=== PATIENT | female | born 1975 | race Caucasian/White ===

== ENCOUNTER 2022-10-10 13:55 | Emergency (ER) | payer OTHER, MEDICAID, SELFPAY ==
[2022-10-10] VITALS (10 sets, daily range): BP systolic 122–178; BP diastolic 57–106; PULSE 85–110; RESP 18–20; TEMP 37.2; O2SAT 94–99
--- NOTE | 2022-10-10 14:25 | DI.RAD.S_ITS ---
PROCEDURE: XR CHEST 2V INDICATIONS: productive cough TECHNIQUE: 2 views of the chest were acquired. COMPARISON: None. FINDINGS: Surgical changes and devices: None. Lungs and pleura: Mildly prominent interstitium and peribronchial cuffing. No dense consolidation or pleural effusion. Mediastinum: Mediastinal contours are normal. Heart size is normal. Bones and chest wall: No suspicious bony abnormalities. Soft tissues appear unremarkable. IMPRESSION: Peribronchial cuffing and mildly prominent perihilar regions could represent infectious bronchitis in the setting of cough. No dense pulmonary airspace consolidation or pleural effusion. Dictated by: Reg Russ M.D. on 10/10/2022 at 15:50 Approved by: Reg Russ M.D. on 10/10/2022 at 15:51
--- NOTE | 2022-10-10 15:12 | ED.URI ---
HPI - URI/Sore Throat <Anu Gomez PA-C - Last Filed: 10/10/22 19:06> General Chief Complaint: Upper Respiratory Symptoms Stated Complaint: SOB t-1/Chest Tightness/Heaviness Time Seen by Provider: 10/10/22 14:41 Mode of arrival: Ambulatory History of Present Illness HPI Narrative: Patient is 47 years old female, ex-smoker, who reports has been sick with upper respiratory symptoms for about 1 week, however her cough, congestion is now much worse to the point she is coughing non stop She admits to chest tightness, SOB, feeling hot and cold, rib cage pain, due to coughing, nasal congestion. Her cough became productive with green mucus. What worries her the most, inability to take a full breath since this AM which prompted her current ED visit. She admits her grandchild has had some respiratory sx, which resolved, however I am in a bad way. Related Data Previous Rx's Medication Instructions Recorded albuterol sulfate 90 mcg/actuation 2 puff inhalation Q6H PRN 10/10/22 aerosol inhaler (Proventil HFA) shortness of breath or wheezing #8.5 grams azithromycin 250 mg tablet See Rx Instructions PO .COMPLEX #6 10/10/22 (Zithromax) tabs codeine 10 mg-guaifenesin 100 mg/5 10 ml PO Q4-6H PRN cough #237 mL 10/10/22 mL oral liquid (Guaifenesin AC) methylprednisolone 4 mg tablets in See Rx Instructions PO .COMPLEX 10/10/22 a dose pack (Medrol (Imtiaz)) #21 ea Allergies Allergy/AdvReac Type Severity Reaction Status Date / Time No Known Drug Allergies Allergy Verified 10/10/22 14:24 Review of Systems <Anu Gomez PA-C - Last Filed: 10/10/22 19:06> Review of Systems Narrative: Pertinent review of systems is otherwise normal unless stated in HPI Patient History <Anu Gomez PA-C - Last Filed: 10/10/22 19:06> Social History Smoking Status: Former smoker Smoking Status: Former smoker Substance Use Type: does not use Exam <Anu Gomez PA-C - Last Filed: 10/10/22 19:06> Narrative Exam Narrative: GENERAL: alert and oriented X 3 female , overweight, 47 ears old patient appears older stated age. , in mild distress an coughing non stop . HEAD: Atraumatic. Normocephalic. EYES: Pupils equal round and reactive. Extraocular motions intact. No scleral icterus. No injection or drainage. ENT: clear nasal discharge , nostrils are without bleeding, purulent drainage. Throat with erythema, tonsillar hypertrophy or exudate. Airway patent. NECK: Trachea midline. Non tender CARDIOVASCULAR: Regular rate and rhythm without murmurs, gallops, or rubs. RESPIRATORY: scattered wheezing at a/l/ lobes on auscultation. Breath sounds equal bilaterally. pt coughs frequently GASTROINTESTINAL: Abdomen soft, non-tender, nondistended. EXTREMITIES: No edema or joint tenderness. BACK: Nontender without deformity or crepitance. No flank tenderness. NEURO: AOx3. SKIN: No rash or erythema of visible areas Initial Vital Signs Initial Vital Signs: Vital Signs Temperature 98.9 F 10/10/22 14:19 Pulse Rate 110 H 10/10/22 14:19 Respiratory Rate 18 10/10/22 14:19 Blood Pressure 178/106 H 10/10/22 14:19 Pulse Oximetry 96 10/10/22 14:19 Oxygen Delivery Method 10/10/22 14:19 <Leelee Hernandez MD - Last Filed: 10/15/22 05:02> Initial Vital Signs Initial Vital Signs: Vital Signs Temperature 98.9 F 10/10/22 14:19 Pulse Rate 110 H 10/10/22 14:19 Respiratory Rate 18 10/10/22 14:19 Blood Pressure 178/106 H 10/10/22 14:19 Pulse Oximetry 96 10/10/22 14:19 Oxygen Delivery Method 10/10/22 14:19 Course <Anu Gomez PA-C - Last Filed: 10/10/22 19:06> Orders Ordered: Discontinued Medications Albuterol/Ipratropium (Albuterol/Ipratropium 3 Ml Ampul) 3 ml INH NOW ONE Stop: 10/10/22 17:28 Last Admin: 10/10/22 17:31 Dose: 3 ml Documented By: SAT Vital Signs Vital signs: Vital Signs - 8 hr 10/10/22 14:19 10/10/22 17:05 10/10/22 17:06 Temperature 98.9 F Pulse Rate 110 H 97 H Respiratory Rate 18 Blood Pressure 178/106 H Pulse Oximetry 96 99 96 Oxygen Delivery Method Room Air 10/10/22 17:06 10/10/22 17:40 10/10/22 17:30 Temperature Pulse Rate 85 100 H Respiratory Rate 20 Blood Pressure 149/89 H Pulse Oximetry 96 96 Oxygen Delivery Method Room Air 10/10/22 17:31 10/10/22 17:31 10/10/22 18:00 Temperature Pulse Rate 94 H 100 H Respiratory Rate Blood Pressure 122/71 Pulse Oximetry 94 95 Oxygen Delivery Method Room Air 10/10/22 18:01 10/10/22 18:01 10/10/22 18:30 Temperature Pulse Rate 101 H 104 H Respiratory Rate Blood Pressure 128/81 Pulse Oximetry 95 94 Oxygen Delivery Method 10/10/22 18:31 10/10/22 18:31 Temperature Pulse Rate 100 H Respiratory Rate Blood Pressure 130/57 L Pulse Oximetry 95 Oxygen Delivery Method Room Air <Leelee Hernandez MD - Last Filed: 10/15/22 05:02> Orders Ordered: Discontinued Medications Albuterol/Ipratropium (Albuterol/Ipratropium 3 Ml Ampul) 3 ml INH NOW ONE Stop: 10/10/22 17:28 Last Admin: 10/10/22 17:31 Dose: 3 ml Documented By: SAT Vital Signs Vital signs: Vital Signs - 8 hr 10/10/22 14:19 10/10/22 17:05 10/10/22 17:06 Temperature 98.9 F Pulse Rate 110 H 97 H Respiratory Rate 18 Blood Pressure 178/106 H Pulse Oximetry 96 99 96 Oxygen Delivery Method Room Air 10/10/22 17:06 10/10/22 17:40 10/10/22 17:30 Temperature Pulse Rate 85 100 H Respiratory Rate 20 Blood Pressure 149/89 H Pulse Oximetry 96 96 Oxygen Delivery Method Room Air 10/10/22 17:31 10/10/22 17:31 10/10/22 18:00 Temperature Pulse Rate 94 H 100 H Respiratory Rate Blood Pressure 122/71 Pulse Oximetry 94 95 Oxygen Delivery Method Room Air 10/10/22 18:01 10/10/22 18:01 10/10/22 18:30 Temperature Pulse Rate 101 H 104 H Respiratory Rate Blood Pressure 128/81 Pulse Oximetry 95 94 Oxygen Delivery Method 10/10/22 18:31 10/10/22 18:31 Temperature Pulse Rate 100 H Respiratory Rate Blood Pressure 130/57 L Pulse Oximetry 95 Oxygen Delivery Method Room Air MDM - URI/Sore Throat <Anu Gomez PA-C - Last Filed: 10/10/22 19:06> Lab Data Labs: Lab Results 10/10/22 Range/Units 14:22 SARS-CoV-2 (PCR) Negative (Negative) Influenza A (RT-PCR) Flu a negative (NEGATIVE) Influenza B (RT-PCR) Flu b negative (NEGATIVE) RSV (PCR) Positive A (Negative) Imaging Data Chest x-ray: Radiologist's Impression: ? Bones and chest wall:? No suspicious bony abnormalities.? Soft tissues appear unremarkable.? ? IMPRESSION:? Peribronchial cuffing and mildly prominent perihilar regions could represent infectious bronchitis in the setting of cough.? No dense pulmonary airspace consolidation or pleural effusion. MDM Narrative Medical decision making narrative: actue bronchitis in setting of RSV complicated by bronchospasm Discussed w patient diagnosis, will start treatment with zithromax, short course of steroids, albuterol inhaler, and cough syrup. She instructed to exercise infection preventing precautions, self isolation in a view of RSV She will seek attention with worsening sx, such as increasing SOB, fever, chest tightness, dizziness Patient expressed understanding, willingness to comply <Leelee Hernandez MD - Last Filed: 10/15/22 05:02> Lab Data Labs: Lab Results 10/10/22 Range/Units 14:22 SARS-CoV-2 (PCR) Negative (Negative) Influenza A (RT-PCR) Flu a negative (NEGATIVE) Influenza B (RT-PCR) Flu b negative (NEGATIVE) RSV (PCR) Positive A (Negative) Discharge Plan Departure Patient Disposition: Home Clinical Impression: Acute bronchitis, Upper respiratory infection, Acute bronchiolitis due to respiratory syncytial virus Instructions: Acute Bronchitis Activity Restrictions/Additional Instructions: Patient is diagnosed with RSV and acute bronchiolitis due to viral illness. patient has significant bronchospasm and as a result, coughing. Please start taking prescribed medications. There is no evidence of an emergent or life threatening illness at this time, but follow up with your doctor in 1-2 days Please call the office for an appointment. Please return to the Emergency Department for any worsening or persistent symptoms. Please take medications as directed. Prescriptions: New albuterol sulfate [Proventil HFA] 90 mcg/actuation HFA aerosol inhaler 2 puff inhalation Q6H PRN (Reason: shortness of breath or wheezing) Qty: 8.5 0RF azithromycin [Zithromax] 250 mg tablet See Rx Instructions .ROUTE .COMPLEX Qty: 6 0RF Rx Instructions: For 250 mg dose pack: take 500 mg today (day 1), then 250 mg for 4 days (days 2-5) methylprednisolone [Medrol (Imitaz)] 4 mg tablets,dose pack See Rx Instructions .ROUTE .COMPLEX Qty: 21 0RF Rx Instructions: orally per package directions codeine-guaifenesin [Guaifenesin AC] 10-100 mg/5 mL liquid 10 ml PO Q4-6H PRN (Reason: cough) Qty: 237 0RF Referrals: Miscellaneous,Doctor, [Primary Care Provider] - Visit Report Forms: Patient Portal/API <Leelee Hernandez MD - Last Filed: 10/15/22 05:02> [facility]: I was immediately available in the department for consultation throughout this patient's visit. I agree with documentation as above. Leelee Hernandez MD
[2022-10-10 15:56] LABS: Influenza A - CEPHEID Flu A NEGATIVE (NEGATIVE); Influenza B - CEPHEID Flu B NEGATIVE (NEGATIVE); Respiratory Syncytial Virus POSITIVE (Negative)
[2022-10-10 15:58] LABS: COVID-19 CEPHEID 4-PLEX PCR Negative (Negative)
[2022-10-10] MEDS: ALBUTEROL/IPRATROPIUM 3 ML AMPUL INH (17:31)
== END 2022-10-10 19:06 | disposition home or self-care (01) ==
PROVIDERS: Emergency Medicine; Emergency Provider Physician Assistant Medical; Family Provider Family Medicine
DX: J21.0 Acute bronchiolitis due to respiratory syncytial virus (principal); J40 Bronchitis, not specified as acute or chronic; Z20.822 Contact with and (suspected) exposure to COVID-19
CPT/HCPCS: 0241U; 71046; 94640; 99283

== ENCOUNTER 2025-06-11 00:30 | Inpatient (IN) | payer OTHER, SELFPAY ==
[2025-06-11] VITALS (64 sets, daily range): BP systolic 108–170; BP diastolic 57–91; PULSE 77–118; RESP 12–36; TEMP 36.2–37.1; O2SAT 85–100; BMI 51.3
--- NOTE | 2025-06-11 00:32 | ED_ITS ---
HPI - Overdose General Chief Complaint: Toxicology Problem Stated Complaint: Overdose Time Seen by Provider: 06/11/25 00:32 History of Present Illness HPI Narrative: 50-year-old female brought in via EMS for altered mental status whereby she was given a total of 8 mg of Narcan total, blood sugar over 300, found initially down loss of consciousness unresponsive. last saw her normal 8 hours ago when he left for work. She is currently on 15 L O2 non-rebreather. Due to altered mental status until able to obtain 14 point review at this time. Collateral information obtained from sister of patient who states patient was found down by rodrick when he got home from work with vomiting on the ground and being unresponsive so he called 911. Apparently patient was going through daughter's purse for which daughter is a known drug addict and abuses heroin and fentanyl unsure if patient took anything or was exposed to anything from physically going through the purse that resulted in her clinical course. Related Data Previous Rx's ?Medication ?Instructions ?Recorded albuterol sulfate 90 mcg/actuation 2 puff inhalation Q 6H PRN 10/10/22 aerosol inhaler (Proventil HFA) shortness of breath or wheezing #8.5 grams Allergies Allergy/AdvReac Type Severity Reaction Status Date / Time No Known Drug Allergies Allergy Verified 06/11/25 16:09 Review of Systems Review of Systems ROS Unobtainable: All systems reviewed & are unremarkable except as noted in HPI and below Patient History Social History household members: significant other and family Smoking Status: Current every day smoker alcohol intake: current Exam Narrative Exam Narrative: GENERAL: [50] year old patient appears stated age. Well-developed patient, in mild distress. HEAD: Atraumatic. Normocephalic. EYES: Pupils equal round and reactive. Extraocular motions intact. No scleral icterus. No injection or drainage. ENT: Nose without bleeding, purulent drainage. Throat without erythema, tonsillar hypertrophy or exudate. Airway patent. NECK: Trachea midline. Non tender CARDIOVASCULAR: Regular rate and rhythm without murmurs, gallops, or rubs. RESPIRATORY: Clear to auscultation. Breath sounds equal bilaterally. No wheezes, rales, or rhonchi. GASTROINTESTINAL: Abdomen soft, non-tender, nondistended. EXTREMITIES: No edema or joint tenderness. BACK: Nontender without deformity or crepitance. No flank tenderness. NEURO: AOx3. SKIN: No rash or erythema of visible areas Initial Vital Signs Initial Vital Signs: Vital Signs Temperature 97.1 F L 06/11/25 00:26 Pulse Rate 116 H 06/11/25 00:26 Respiratory Rate 24 06/11/25 00:26 Blood Pressure 120/64 06/11/25 00:26 Pulse Oximetry 92 06/11/25 00:26 Oxygen Delivery Method Non -Rebreather 06/11/25 00:26 Oxygen Flow Rate 15 06/11/25 00:26 Scores GCS Bradford coma scale eye opening: Spontaneous Bradford coma scale verbal response: Confused Betsey coma scale motor response: Obey commands Betsey coma scale total score: 14 Course Orders Ordered: ED Orders 06/12/25 03:57 Complete Blood Count AUTO DIFF DAILY Comprehensive Metabolic Panel DAILY Acetaminophen (Acetaminophen 325 Mg Tablet) 650 mg PO Q6H PRN PRN Reason: Fever/Mild Pain (1-3) Last Admin: 06/12/25 04:11 Dose: 650 mg Documented By: Admin: 06/11/25 11:41 Dose: 650 mg Documented By: ES Albuterol (Albuterol 2.5 Mg/3 Ml Neb (Adult)) 2.5 mg INH [id number] PRN PRN Reason: Shortness Of Breath Enoxaparin Sodium (Enoxaparin 40 Mg/0.4 Ml Syringe) 40 mg SUBCUT DAILY SANDRA Last Admin: 06/11/25 09:33 Dose: 40 mg Documented By: ES Naloxone HCl 2 mg/ Sodium (Chloride) 500 mls @ 62.5 mls/hr IV TITRATE SANDRA; Protocol Last Titration: 06/11/25 19:03 Dose: Infused Documented By: Titration: 06/11/25 16:46 Dose: 0 mg/hr, 0 mls/hr Documented By: Titration: 06/11/25 16:16 Dose: 0.2 mg/hr, 50 mls/hr Documented By: Admin: 06/11/25 10:10 Dose: 0.25 mg/hr, 62.5 mls/hr Documented By: Titration: 06/11/25 10:10 Dose: Infused Documented By: Admin: 06/11/25 02:23 Dose: 0.25 mg/hr, 62.5 mls/hr Documented By: SIMA Sodium Chloride (Normal Saline 0.9%) 1,000 mls @ 50 mls/hr IV CONT [facility] Last Admin: 06/11/25 16:13 Dose: 50 mls/hr Documented By: Infusion: 06/11/25 13:21 Dose: Infused Documented By: Admin: 06/11/25 06:15 Dose: 150 mls/hr Documented By: SIMA Piperacillin Sod/Tazobactam (Sod 3.375 gm/ Sodium Chloride) 100 mls @ 25 mls/hr IV Q8H [facility] Last Infusion: 06/12/25 05:22 Dose: Infused Documented By: Admin: 06/12/25 01:22 Dose: 25 mls/hr Documented By: Infusion: 06/11/25 22:06 Dose: Infused Documented By: Admin: 06/11/25 18:06 Dose: 25 mls/hr Documented By: DONYA Naloxone HCl (Naloxone 0.4 Mg/Ml Vial) 0.2 mg IV Q2MIN PRN PRN Reason: Opiate Reversal Pantoprazole Sodium (Pantoprazole 40 Mg Vial) 40 mg IV DAILY [facility] Last Admin: 06/11/25 09:32 Dose: 40 mg Documented By: MELLY Discontinued Medications Albuterol/Ipratropium (Albuterol/Ipratropium 3 Ml Ampul) 3 ml INH [id number] [facility] Last Admin: 06/11/25 07:07 Dose: 3 ml Documented By: REILLY Lactated Ringer's (Lactated Ringers) 1,000 mls @ 1,000 mls/hr IV BOLUS ONE Stop: 06/11/25 03:16 Last Infusion: 06/11/25 04:00 Dose: Infused Documented By: Admin: 06/11/25 02:25 Dose: 1,000 mls/hr Documented By: SIMA Piperacillin Sod/Tazobactam (Sod 4.5 gm/ Sodium Chloride) 100 mls @ 200 mls/hr IV NOW ONE Stop: 06/11/25 03:23 Last Infusion: 06/11/25 04:39 Dose: Infused Documented By: Admin: 06/11/25 03:53 Dose: 200 mls/hr Documented By: NIMO Naloxone HCl (Naloxone 1 Mg/Ml Syringe) 2 mg IV NOW ONE Stop: 06/11/25 01:34 Last Admin: 06/11/25 01:40 Dose: 2 mg Documented By: SIMA Ondansetron HCl (Ondansetron 4 Mg/2 Ml Inj) 4 mg IV NOW ONE Stop: 06/11/25 01:09 Last Admin: 06/11/25 01:17 Dose: 4 mg Documented By: SIMA Vital Signs Vital signs: Vital Signs - 8 hr 06/11/25 00:26 06/11/25 00:29 06/11/25 00:29 Temperature 97.1 F L Pulse Rate 116 H 118 H Respiratory Rate 24 22 Blood Pressure 120/64 120/64 Pulse Oximetry 92 92 Oxygen Delivery Method Non -Rebreather Non -Rebreather Oxygen Flow Rate 15 15 06/11/25 00:30 Temperature Pulse Rate 118 H Respiratory Rate 21 Blood Pressure Pulse Oximetry 91 Oxygen Delivery Method Non -Rebreather Oxygen Flow Rate 15 MDM - Overdose Lab Data 06/12/25 03:57 06/12/25 03:57 Labs: Lab Results 06/11/25 06/11/25 06/11/25 Range/Units 00:40 00:44 02:28 WBC 21.4 H (4.5-11.0) X10^3/uL RBC 4.59 (4.0-5.2) X10^6/uL Hgb 14.1 (12.0-16.0) g/dL Hct 42.8 (36-46) % MCV 93.2 (80-100) fL MCH 30.6 (26-34) PG MCHC 32.9 (30-36) % RDW 13.0 (11.6-14.8) % Plt Count 254 (150-400) X10^3/uL Neut % (Auto) 90.9 H (50-75) % Lymph % (Auto) 7.3 L (25-40) % Mcintosh % (Auto) 1.5 L (3-14) % Eos % (Auto) 0.1 L (2-4) % Baso % (Auto) 0.2 (0-2) % Neut # (Auto) 53890 H (7309-5175) /uL Lymph # (Auto) 1600 (7183-7738) /uL Mcintosh # (Auto) 300 (0-900) /uL Eos # (Auto) 0 (0-450) /uL Baso # (Auto) 0 (0-100) /uL VBG pH 7.19 L* (7.33-7.43) VBG pCO2 56.1 H (45-50) mmHg VBG pO2 37 (35-45) mmHg VBG HCO3 21 L (24-28) mmol/L VBG Total CO2 21 L (24-29) mmol/L VBG O2 Saturation 56 L (70-75) % VBG Base Excess -7.7 L (0-4) mmol/L FiO2 % 100 % % Sodium 137 (137-145) mmol/L Potassium 3.8 (3.4-5.1) mmol/L Chloride 100 (98-107) mmol/L Carbon Dioxide 22 (22-32) mmol/L BUN 13 (7-17) mg/dL Creatinine 1.17 H (0.52-1.04) mg/dL Estimated GFR 57 L (>60) mL/min BUN/Creatinine Ratio 11.1 (6-22) Glucose 197 H (70-99) mg/dL Lactate 4.6 H* (0.7-2.1) mmol/L Calcium 8.6 (8.4-10.2) mg/dL Total Bilirubin 0.6 (0.2-1.3) mg/dL AST 129 H (14-36) IU/L ALT 88 H (<35) IU/L Alkaline Phosphatase 108 (38-126) U/L Total Creatine Kinase 115 (30-135) U/L Troponin I 0.016 (0.01-0.034) ng/mL Total Protein 8.0 (6.3-8.2) g/dL Albumin 4.6 (3.5-5.0) g/dL Globulin 3.4 (1.7-4.1) g/dL Albumin/Globulin Ratio 1.4 (1.0-2.8) Lipase 48 (23-300) U/L Procalcitonin 0.166 (<0.5) ng/mL Urine Color Urine Appearance Urine pH (4.5-8.0) Ur Specific [place] (1.000-1.035) Urine Protein (Negative) Urine Glucose (UA) (Negative) g/dL Urine Ketones (NEGATIVE) Urine Occult Blood (Negative) Urine Nitrate (Negative) Urine Bilirubin (NEGATIVE) Urine Urobilinogen (0.2) E.U./dL Ur Leukocyte Esterase (NEGATIVE) Urine RBC (0-5/HPF) Urine WBC (0-5/HPF) Ur Squamous Epith Cells (0-5/HPF) Urine Bacteria (None) Ur Culture Indicated? Vol Urine Centrifuged U Opiates 300ng/mL cut (Negative) Ur Oxycodone Screen (Negative) Urine Methadone Screen (Negative) Ur Barbiturates Screen (Negative) U Tricyclic Antidepress (Negative) Ur Phencyclidine Scrn (Negative) Ur Amphetamines Screen (Negative) U Methamphetamines Scrn (Negative) Ur MDMA Scrn (Ecstasy) (Negative) U Benzodiazepines Scrn (Negative) Urine Cocaine Screen (Negative) U Marijuana (THC) Screen (Negative) Urine Specific [place] Ethyl Alcohol < 10 (<10) mg/dL Ketones 0.07 (<0.27) mmol/L Ur Creatinine SARS-CoV-2 (PCR) Negative (Negative) Influenza A (RT-PCR) Flu a negative (NEGATIVE) Influenza B (RT-PCR) Flu b negative (NEGATIVE) RSV (PCR) Negative (Negative) 06/11/25 06/11/25 06/11/25 Range/Units 02:52 02:52 03:38 WBC (4.5-11.0) X10^3/uL RBC (4.0-5.2) X10^6/uL Hgb (12.0-16.0) g/dL Hct (36-46) % MCV (80-100) fL MCH (26-34) PG MCHC (30-36) % RDW (11.6-14.8) % Plt Count (150-400) X10^3/uL Neut % (Auto) (50-75) % Lymph % (Auto) (25-40) % Mcintosh % (Auto) (3-14) % Eos % (Auto) (2-4) % Baso % (Auto) (0-2) % Neut # (Auto) (6811-9683) /uL Lymph # (Auto) (5728-3432) /uL Mcintosh # (Auto) (0-900) /uL Eos # (Auto) (0-450) /uL Baso # (Auto) (0-100) /uL VBG pH (7.33-7.43) VBG pCO2 (45-50) mmHg VBG pO2 (35-45) mmHg VBG HCO3 (24-28) mmol/L VBG Total CO2 (24-29) mmol/L VBG O2 Saturation (70-75) % VBG Base Excess (0-4) mmol/L FiO2 % % Sodium (137-145) mmol/L Potassium (3.4-5.1) mmol/L Chloride (98-107) mmol/L Carbon Dioxide (22-32) mmol/L BUN (7-17) mg/dL Creatinine (0.52-1.04) mg/dL Estimated GFR (>60) mL/min BUN/Creatinine Ratio (6-22) Glucose (70-99) mg/dL Lactate 3.5 H (0.7-2.1) mmol/L Calcium (8.4-10.2) mg/dL Total Bilirubin (0.2-1.3) mg/dL AST (14-36) IU/L ALT (<35) IU/L Alkaline Phosphatase (38-126) U/L Total Creatine Kinase (30-135) U/L Troponin I (0.01-0.034) ng/mL Total Protein (6.3-8.2) g/dL Albumin (3.5-5.0) g/dL Globulin (1.7-4.1) g/dL Albumin/Globulin Ratio (1.0-2.8) Lipase (23-300) U/L Procalcitonin (<0.5) ng/mL Urine Color Yellow Urine Appearance Clear Urine pH 5.5 TNP (4.5-8.0) Ur Specific [place] >=1.030 H (1.000-1.035) Urine Protein 1+ H (Negative) Urine Glucose (UA) Negative (Negative) g/dL Urine Ketones Negative (NEGATIVE) Urine Occult Blood Negative (Negative) Urine Nitrate Negative (Negative) Urine Bilirubin Negative (NEGATIVE) Urine Urobilinogen 1.0 (0.2) E.U./dL Ur Leukocyte Esterase Negative (NEGATIVE) Urine RBC None seen (0-5/HPF) Urine WBC None seen (0-5/HPF) Ur Squamous Epith Cells 0-1 /hpf (0-5/HPF) Urine Bacteria None seen (None) Ur Culture Indicated? Cult not indicated Vol Urine Centrifuged 10ml (spun) U Opiates 300ng/mL cut Negative (Negative) Ur Oxycodone Screen Negative (Negative) Urine Methadone Screen Negative (Negative) Ur Barbiturates Screen Negative (Negative) U Tricyclic Antidepress Negative (Negative) Ur Phencyclidine Scrn Negative (Negative) Ur Amphetamines Screen Positive H (Negative) U Methamphetamines Scrn Positive H (Negative) Ur MDMA Scrn (Ecstasy) Negative (Negative) U Benzodiazepines Scrn Negative (Negative) Urine Cocaine Screen Negative (Negative) U Marijuana (THC) Screen Negative (Negative) Urine Specific [place] TNP Ethyl Alcohol (<10) mg/dL Ketones (<0.27) mmol/L Ur Creatinine TNP SARS-CoV-2 (PCR) (Negative) Influenza A (RT-PCR) (NEGATIVE) Influenza B (RT-PCR) (NEGATIVE) RSV (PCR) (Negative) Imaging Data Chest x-ray: Radiologist's Impression: [place] [id number] XRay Report Signed Patient: Amarilys Guevara MR#: [id number] : 1975 Acct:[id number] Age/Sex: 47 / F Date of Service: 10/10/22 Loc: ED Accession Number: [id number] Procedure: XR chest 2V Ordering Provider: Leelee Hernandez MD PROCEDURE: XR CHEST 2V INDICATIONS: productive cough TECHNIQUE: 2 views of the chest were acquired. COMPARISON: None. FINDINGS: Surgical changes and devices: None. Lungs and pleura: Mildly prominent interstitium and peribronchial cuffing. No dense consolidation or pleural effusion. Mediastinum: Mediastinal contours are normal. Heart size is normal. Bones and chest wall: No suspicious bony abnormalities. Soft tissues appear unremarkable. IMPRESSION: Peribronchial cuffing and mildly prominent perihilar regions could represent infectious bronchitis in the setting of cough. No dense pulmonary airspace consolidation or pleural effusion. CT scan - head: Radiologist's Impression: [address] [address] [address] Scan Report Signed Patient: Amarilys Guevara MR#: [id number] : 1975 Acct:[id number] Age/Sex: 50 / F Date of Service: 06/11/25 Loc: ED Accession Number: [id number] Procedure: CT head/brain wo con Ordering Provider: Koffi Monterroso D.O. PROCEDURE: CT HEAD/BRAIN WO CON INDICATIONS: altered mental status TECHNIQUE: Noncontrast 4.5 mm thick angled axial sections acquired from the foramen magnum to the vertex, with coronal and sagittal reformats. For radiation dose reduction, the following was used: automated exposure control, adjustment of mA and/or kV according to patient size. COMPARISON: None. FINDINGS: Image quality: Diagnostic. CSF spaces: Basal cisterns are patent. No extra-axial fluid collections. Ventricles are normal in size and shape. Brain: No midline shift. No intracranial mass effect or hemorrhage. Sauer- white matter interface is normal. Skull and face: Calvarium and visualized facial bones are intact, without suspicious lesions. Sinuses: Visualized sinuses and mastoids are clear. IMPRESSION: No acute intracranial pathology. ECG Data Interpretation: NSR HR 100 OH 164 QRS [address]-t wave change No previous EKG to compare MDM Narrative Medical decision making narrative: Vital signs, nurse triage note, medication list, previous ER visits and all imaging study reviewed. Chest x-ray peribronchial cuffing and mildly prominent perihilar region represent infectious bronchitis in the setting of cough. No dense per pulmonary airspace consolidation or pleural effusion. CT head showed no acute process. Zosyn started along with 1 L lactated ringer. Differential diagnosis includes polysubstance abuse, accidental overdose from accidental exposure. Case discussed with Dr. Cristina who has graciously accepted the patient for inpatient admission. Naloxone at Discharge Meets criteria for naloxone at discharge?: Yes Discharge Plan Departure Patient Disposition: Admitted As Inpatient Clinical Impression: Methamphetamine poisoning of undetermined intent Qualifiers: Encounter type: initial encounter Qualified Code(s): T43.654A - Poisoning by methamphetamines, undetermined, initial encounter Admit Date/Time: 06/11/25 03:55 Admit Provider: Filiberto Alves
--- NOTE | 2025-06-11 00:42 | DI.CT.S_ITS ---
PROCEDURE: CT HEAD/BRAIN WO CON INDICATIONS: altered mental status TECHNIQUE: Noncontrast 4.5 mm thick angled axial sections acquired from the foramen magnum to the vertex, with coronal and sagittal reformats. For radiation dose reduction, the following was used: automated exposure control, adjustment of mA and/or kV according to patient size. COMPARISON: None. FINDINGS: Image quality: Diagnostic. CSF spaces: Basal cisterns are patent. No extra-axial fluid collections. Ventricles are normal in size and shape. Brain: No midline shift. No intracranial mass effect or hemorrhage. Sauer- white matter interface is normal. Skull and face: Calvarium and visualized facial bones are intact, without suspicious lesions. Sinuses: Visualized sinuses and mastoids are clear. IMPRESSION: No acute intracranial pathology. Dictated by: Norma Noe M.D. on 06/11/2025 at 1:19 Approved by: Norma Noe M.D. on 06/11/2025 at 1:19
--- NOTE | 2025-06-11 00:45 | PC.NURSE ---
Pt becoming more aware of what is happening. States I must have gotten into my daughters stuff- she uses fentanyl. When asked how much or how she ingested, pt responds I don't know.
[2025-06-11 00:48] LABS: Base Excess VBG -7.7 mmol/L (0-4); HCO3 VBG 21 mmol/L (24-28); Oxygen Saturation VBG 56 % (70-75); PCO2 VBG 56.1 mmHg (45-50); PO2 VBG 37 mmHg (35-45); Total CO2 VBG 21 mmol/L (24-29); pH VBG 7.19 (7.33-7.43)
--- NOTE | 2025-06-11 01:11 | EKG_ITS ---
[place] [address] [address] [address] Test Date: 2025-06-11 Pat Name: Amarilys Guevara Department: Room: Gender: Female Order Checker: V : 1975 Requested By: Order Number: [id number] Reading MD: Burke Ram Measurements Intervals [place] Rate: 100 P: 79 IN: 164 QRS: 76 QRSD: 98 T: 12 QT: 360 QTc: 464 Interpretive Statements Normal sinus rhythm Electronically Signed On 06-12-2025 13:51:42 PDT by Burke Ram
--- NOTE | 2025-06-11 01:11 | DI.RAD.S_ITS ---
PROCEDURE: XR CHEST 1V INDICATIONS: chest pain TECHNIQUE: One view of the chest was acquired. COMPARISON: None. FINDINGS: Surgical changes and devices: None. Lungs and pleura: Low lung volumes bilaterally with lordotic positioning. No definite consolidation. No pleural effusions or pneumothorax. Mediastinum: Mediastinal contours appear normal. Heart size is normal. Bones and chest wall: No suspicious bony lesions. Overlying soft tissues appear unremarkable. IMPRESSION: Low lung volumes bilaterally. No acute cardiopulmonary abnormality is seen. There is no significant discrepancy when compared to the overnight preliminary report. Approved by: Bjorn Gonzalez M.D. on 06/11/2025 at 7:54
[2025-06-11] MEDS: ONDANSETRON 4 MG/2 ML INJ IV (01:17)
[2025-06-11 01:30] LABS: Alanine Aminotransferase 88 IU/L (<35); Albumin 4.6 g/dL (3.5-5.0); Albumin Globulin Ratio 1.4 (1.0-2.8); Alkaline Phosphatase 108 U/L (38-126); Blood Urea Nitrogen 13 mg/dL (7-17); Calcium 8.6 mg/dL (8.4-10.2); Carbon Dioxide 22 mmol/L (22-32); Chloride 100 mmol/L (98-107); Creatine Kinase 115 U/L (30-135); Estimated Glomerular Filt Rate 57 mL/min (>60); Globulin 3.4 g/dL (1.7-4.1); Glucose 197 mg/dL (70-99); HEMOLYSIS < 15 (0-50); Lipase 48 U/L (23-300); Potassium 3.8 mmol/L (3.4-5.1); Sodium 137 mmol/L (137-145); Total Protein 8.0 g/dL (6.3-8.2)
[2025-06-11 01:31] LABS: Ethanol (ETOH) < 10 mg/dL (<10)
[2025-06-11] MEDS: NALOXONE 1 MG/ML SYRINGE 2 MG IV (01:40)
[2025-06-11 01:41] LABS: Lactate (Lactic Acid) 4.6 mmol/L (0.7-2.1)
[2025-06-11 01:42] LABS: Troponin I 0.016 ng/mL (0.01-0.034)
--- NOTE | 2025-06-11 01:43 | PC.NURSE ---
Dr. Monterroso notified of pt's O2 sats dropping to 85% on non rebreather. Narcan ordered and given, see MAR. Pt now responding well. 95% o2 sat on non-rebreather.
[2025-06-11 01:44] LABS: Add Manual Diff / Slide Review NO; Hematocrit 42.8 % (36-46); Hemoglobin 14.1 g/dL (12.0-16.0); Lymphocytes Absolute Auto 1600 /uL (1100-4500); Mean Corpuscular HGB Conc 32.9 % (30-36); Mean Corpuscular Hemoglobin 30.6 PG (26-34); Mean Corpuscular Volume 93.2 fL (80-100); Platelet Count 254 X10^3/uL (150-400)
[2025-06-11 01:47] LABS: Procalcitonin 0.166 ng/mL (<0.5)
[2025-06-11 02:21] LABS: Ketones (Beta-Hydroxybutyrate) 0.07 mmol/L (<0.27)
[2025-06-11] MEDS: NALOXONE 2 MG in SODIUM CHLORIDE 0.9% 500 ML 62.5 MG IV ×2 (02:23→10:10)
[2025-06-11] MEDS: LACTATED RINGERS 1,000 ML 1000 ML IV (02:25)
[2025-06-11 02:51] LABS: Reflexed Lactate in 2 Hours Y
[2025-06-11 03:16] LABS: Appearance Urine UA CLEAR; Bilirubin Urine UA NEGATIVE (NEGATIVE); Color Urine UA YELLOW; Glucose Urine UA NEGATIVE (Negative); Ketones Urine UA NEGATIVE (NEGATIVE); Leukocyte Esterase Urine UA NEGATIVE (NEGATIVE); Nitrite Urine UA NEGATIVE (Negative); Occult Blood Urine UA NEGATIVE (Negative); Protein Urine UA 1+ (Negative); Specific Gravity Urine UA >=1.030 (1.000-1.035); Urobilinogen Urine UA 1.0 E.U./dL (0.2)
[2025-06-11 03:17] LABS: pH Urine UA 5.5 (4.5-8.0)
[2025-06-11 03:23] LABS: Influenza A - CEPHEID Flu A NEGATIVE (NEGATIVE); Influenza B - CEPHEID Flu B NEGATIVE (NEGATIVE)
[2025-06-11 03:26] LABS: COVID-19 CEPHEID 4-PLEX PCR Negative (Negative)
[2025-06-11 03:29] LABS: Culture Indicated Urine Cult Not Indicated
[2025-06-11 03:30] LABS: UR Morphine/Opiate cutoff 300 Negative (Negative); Urine MDMA Negative (Negative); Urine Methamphetamines Positive (Negative); Urine Tetrahydrocannabinol Negative (Negative); Urine Tricyclic Antidepressant Negative (Negative)
[2025-06-11] MEDS: PIPERACILLIN/TAZO 4.5 GM in SODIUM CHLORIDE 0.9% 100 ML IV (03:53)
[2025-06-11 04:01] LABS: Lactate 2HR (Lactic Acid Rflx) 3.5 mmol/L (0.7-2.1)
--- NOTE | 2025-06-11 06:00 | PM.HP.1 ---
History of Present Illness History of Present Illness Date Patient Seen: 06/11/25 Time Patient Seen: 06:01 Chief complaint: Overdose Narrative: The pt is a 50yo who was brought to the ER after being found unresponsive by her boyfriend covered in vomit lying on a couch.EMS brought her to the ER, after receiving 8 mg of narcan.The kpt was able to give a brief hx to the ER doc and myself. She states she was cleaning out her daughter's purse and then passed out and doesn't remember anything after that. Amarilys denies any recent infection, no fevers/chills,no recent N/V episodes, no ill contacts. She denies recreational drug use, but + tob, rare ETOH. The pt was initally on 15 lpm oxymask but wehave weaned her down to7 lpm oxymask with Sao2 97% Meds Home Medications and Allergies Home Medications ?Medication ?Instructions ?Recorded ?Confirmed ?Type albuterol sulfate 90 mcg/actuation 2 puff inhalation Q6H PRN 10/10/22 Rx aerosol inhaler (Proventil HFA) shortness of breath or wheezing #8.5 grams azithromycin 250 mg tablet See Rx Instructions PO .COMPLEX #6 10/10/22 Rx (Zithromax) tabs codeine 10 mg-guaifenesin 100 mg/5 10 ml PO Q4-6H PRN cough #237 mL 10/10/22 Rx mL oral liquid (Guaifenesin AC) methylprednisolone 4 mg tablets in See Rx Instructions PO .COMPLEX 10/10/22 Rx a dose pack (Medrol (Imtiaz)) #21 ea Allergies Allergy/AdvReac Type Severity Reaction Status Date / Time No Known Drug Allergies Allergy Verified 10/10/22 14:24 Exam Vital Signs (past 8 hours): - 06/11/25 00:26 06/11/25 00:29 06/11/25 00:29 Temperature 97.1 F L Pulse Rate 116 H 118 H Respiratory Rate 24 22 Blood Pressure 120/64 120/64 Pulse Oximetry 92 92 Oxygen Delivery Method Non -Rebreather Non -Rebreather Oxygen Flow Rate 15 15 06/11/25 00:30 06/11/25 00:45 06/11/25 00:45 Temperature Pulse Rate 118 H 107 H Respiratory Rate 21 16 Blood Pressure 123/82 Pulse Oximetry 91 99 Oxygen Delivery Method Non -Rebreather Oxygen Flow Rate 15 06/11/25 00:54 06/11/25 00:54 06/11/25 01:00 Temperature Pulse Rate 102 H Respiratory Rate 14 Blood Pressure 124/88 139/89 Pulse Oximetry 98 Oxygen Delivery Method Non -Rebreather Oxygen Flow Rate 15 06/11/25 01:00 06/11/25 01:02 06/11/25 01:02 Temperature Pulse Rate 101 H 101 H Respiratory Rate 22 14 Blood Pressure 123/76 Pulse Oximetry 93 Oxygen Delivery Method Non -Rebreather Oxygen Flow Rate 15 06/11/25 01:07 06/11/25 01:30 06/11/25 01:30 Temperature Pulse Rate 94 H Respiratory Rate 15 Blood Pressure 144/65 H Pulse Oximetry 96 85 L Oxygen Delivery Method Nasal Cannula Nasal Cannula Oxygen Flow Rate 6 6 06/11/25 01:32 06/11/25 01:39 06/11/25 02:00 Temperature Pulse Rate 91 H Respiratory Rate 12 21 Blood Pressure Pulse Oximetry 88 L 85 L 99 Oxygen Delivery Method Non -Rebreather Non -Rebreather Non -Rebreather Oxygen Flow Rate 15 15 15 06/11/25 02:01 06/11/25 02:01 06/11/25 02:14 Temperature Pulse Rate 92 H Respiratory Rate 21 Blood Pressure 113/68 Pulse Oximetry 100 94 Oxygen Delivery Method Non -Rebreather Oximask Oxygen Flow Rate 15 9 06/11/25 02:30 06/11/25 02:30 06/11/25 03:00 Temperature Pulse Rate 91 H 92 H Respiratory Rate 23 14 Blood Pressure 113/73 Pulse Oximetry 93 94 Oxygen Delivery Method Oximask Oxygen Flow Rate 06/11/25 03:01 06/11/25 03:01 06/11/25 03:30 Temperature Pulse Rate 92 H 91 H Respiratory Rate 14 14 Blood Pressure 135/77 Pulse Oximetry 94 95 Oxygen Delivery Method Oximask Oximask Oxygen Flow Rate 06/11/25 03:30 06/11/25 04:00 06/11/25 04:00 Temperature Pulse Rate 90 Respiratory Rate 13 Blood Pressure 135/64 136/75 Pulse Oximetry 93 Oxygen Delivery Method Oximask Oxygen Flow Rate 06/11/25 04:30 06/11/25 04:30 Temperature Pulse Rate 89 Respiratory Rate 14 Blood Pressure 126/72 Pulse Oximetry 95 Oxygen Delivery Method Oximask Oxygen Flow Rate 8 Oxygen Delivery Method Oximask Oxygen Flow Rate 8 Const General: acute distress and disheveled Resp Auscultation: rales Cardio Rate: regular rate Rhythm: regular rhythm GI Inspection: obesity Auscultation: normal bowel sounds Neuro General: patient alert and patient awake Objective Labs 06/11/25 00:40 06/11/25 00:40 Labs: Laboratory Results - last 24 hr 06/11/25 06/11/25 06/11/25 00:40 00:44 02:28 WBC 21.4 H RBC 4.59 Hgb 14.1 Hct 42.8 MCV 93.2 MCH 30.6 MCHC 32.9 RDW 13.0 Plt Count 254 Neut % (Auto) 90.9 H Lymph % (Auto) 7.3 L [place] % (Auto) 1.5 L Eos % (Auto) 0.1 L Baso % (Auto) 0.2 Neut # (Auto) 78895 H Lymph # (Auto) 1600 [place] # (Auto) 300 Eos # (Auto) 0 Baso # (Auto) 0 VBG pH 7.19 L* VBG pCO2 56.1 H VBG pO2 37 VBG HCO3 21 L VBG Total CO2 21 L VBG O2 Saturation 56 L VBG Base Excess -7.7 L FiO2 % 100 % Sodium 137 Potassium 3.8 Chloride 100 Carbon Dioxide 22 BUN 13 Creatinine 1.17 H Estimated GFR 57 L BUN/Creatinine Ratio 11.1 Glucose 197 H Lactate 4.6 H* Calcium 8.6 Total Bilirubin 0.6 AST 129 H ALT 88 H Alkaline Phosphatase 108 Total Creatine Kinase 115 Troponin I 0.016 Total Protein 8.0 Albumin 4.6 Globulin 3.4 Albumin/Globulin Ratio 1.4 Lipase 48 Procalcitonin 0.166 Urine Color Urine Appearance Urine pH Ur Specific [place] Urine Protein Urine Glucose (UA) Urine Ketones Urine Occult Blood Urine Nitrate Urine Bilirubin Urine Urobilinogen Ur Leukocyte Esterase Urine RBC Urine WBC Ur Squamous Epith Cells Urine Bacteria Ur Culture Indicated? Vol Urine Centrifuged U Opiates 300ng/mL cut Ur Oxycodone Screen Urine Methadone Screen Ur Barbiturates Screen U Tricyclic Antidepress Ur Phencyclidine Scrn Ur Amphetamines Screen U Methamphetamines Scrn Ur MDMA Scrn (Ecstasy) U Benzodiazepines Scrn Urine Cocaine Screen U Marijuana (THC) Screen Urine Specific [place] Ethyl Alcohol < 10 Ketones 0.07 Ur Creatinine SARS-CoV-2 (PCR) Negative Influenza A (RT-PCR) Flu a negative Influenza B (RT-PCR) Flu b negative RSV (PCR) Negative 06/11/25 06/11/25 06/11/25 02:52 02:52 03:38 WBC RBC Hgb Hct MCV MCH MCHC RDW Plt Count Neut % (Auto) Lymph % (Auto) [place] % (Auto) Eos % (Auto) Baso % (Auto) Neut # (Auto) Lymph # (Auto) [place] # (Auto) Eos # (Auto) Baso # (Auto) VBG pH VBG pCO2 VBG pO2 VBG HCO3 VBG Total CO2 VBG O2 Saturation VBG Base Excess FiO2 % Sodium Potassium Chloride Carbon Dioxide BUN Creatinine Estimated GFR BUN/Creatinine Ratio Glucose Lactate 3.5 H Calcium Total Bilirubin AST ALT Alkaline Phosphatase Total Creatine Kinase Troponin I Total Protein Albumin Globulin Albumin/Globulin Ratio Lipase Procalcitonin Urine Color Yellow Urine Appearance Clear Urine pH 5.5 TNP Ur Specific [place] >=1.030 H Urine Protein 1+ H Urine Glucose (UA) Negative Urine Ketones Negative Urine Occult Blood Negative Urine Nitrate Negative Urine Bilirubin Negative Urine Urobilinogen 1.0 Ur Leukocyte Esterase Negative Urine RBC None seen Urine WBC None seen Ur Squamous Epith Cells 0-1 /hpf Urine Bacteria None seen Ur Culture Indicated? Cult not indicated Vol Urine Centrifuged 10ml (spun) U Opiates 300ng/mL cut Negative Ur Oxycodone Screen Negative Urine Methadone Screen Negative Ur Barbiturates Screen Negative U Tricyclic Antidepress Negative Ur Phencyclidine Scrn Negative Ur Amphetamines Screen Positive H U Methamphetamines Scrn Positive H Ur MDMA Scrn (Ecstasy) Negative U Benzodiazepines Scrn Negative Urine Cocaine Screen Negative U Marijuana (THC) Screen Negative Urine Specific [place] TNP Ethyl Alcohol Ketones Ur Creatinine TNP SARS-CoV-2 (PCR) Influenza A (RT-PCR) Influenza B (RT-PCR) RSV (PCR) Assessment & Plan Assessment & Plan narrative: I have discussed with the ER provider the pt's presenting symptoms,labs and imaging and agree with the decision for admission. I have personally reviewed the labs showing a WBCof 21.4, hgb of 14,VBG7.2/56/37, urine drug screen positive for meth use. I, Dr. Filiberto Alves in [place] have seen and evaluated Amarilys Guevara in [place] using all audio/video of telemedicine with the pt's consent and nursing assistance. 1. Acute respiratory Failure- was on 15 liter of oxyen on presentation, we will continue to wean down keeping SaO2>90%, CT chest without contrast ordered, CXR reviewed by myself showing diffuse infiltrates, consider repeating VBG, 2. Sepsis due to Pneumonia, possible aspiration pneumonitis- started on empiric Zosyn, breathing tx, CXR reviewed,CT chest ordered, Lacticacid elevated to 4.6,WBC of 21.4, 3. metabolic encephalititis- obtunded on presentation, still confused,Meth +on UDS, most likely source. Time-Based Coding :: [TOTAL MINUTES] spent with patient and on the chart (including review of chart, obtaining history, exam, reviewing outside data, placing orders, documenting exam and treatment plan, and counseling patient) on [DATE].
[2025-06-11] MEDS: SODIUM CHLORIDE 0.9% 1,000 ML 150 ML IV (06:15)
--- NOTE | 2025-06-11 06:29 | DI.CT.S_ITS ---
PROCEDURE: CT CHEST WO CON INDICATIONS: respiratory failure/ pneumonia TECHNIQUE: Noncontrast 5 mm thick sections acquired from the pulmonary apices to the posterior costophrenic angles. 1 mm lung window, 5 mm thick coronal and sagittal and 7 mm axial MIP reformats were then acquired. For radiation dose reduction, the following was used: automated exposure control, adjustment of mA and/or kV according to patient size. COMPARISON: [facility], CR, XR CHEST 1V, 06/11/2025, 2:28. FINDINGS: Image quality: Diagnostic. Lower Neck: No enlarged lymph nodes. Thyroid: No thyroid nodules which require sonographic follow up, per consensus guidelines. Axillae: No enlarged lymph nodes. Chest Wall: Unremarkable. Bones: Unremarkable. Lungs and Pleura: No pneumothorax or pleural effusions. Bibasilar consolidative opacities. Additional patchy opacities are seen in the bilateral upper lobes and right middle lobe. Heart: Heart size is normal. No pericardial effusion. Thoracic Vessels: The aorta and pulmonary arteries demonstrate normal size. Mediastinum and [place]: No enlarged lymph nodes. Esophagus: No wall thickening. No hiatal hernia. Upper Abdomen: Surgical clip partially imaged in the right upper quadrant. Visualized upper abdomen solid organs and bowel loops appear normal. IMPRESSION: Multifocal bilateral pulmonary opacities are compatible with bilateral pneumonia. There is no significant discrepancy when compared to the overnight preliminary report. Approved by: Bjorn Gonzalez M.D. on 06/11/2025 at 8:28
[2025-06-11] MEDS: ALBUTEROL/IPRATROPIUM 3 ML AMPUL INH (07:07)
[2025-06-11] MEDS: PANTOPRAZOLE 40 MG VIAL IV (09:32)
[2025-06-11] MEDS: ENOXAPARIN 40 MG/0.4 ML SYRINGE SUBCUT (09:33)
[2025-06-11 10:01] LABS: Creatine Kinase 138 U/L (30-135)
[2025-06-11 10:09] LABS: Prealbumin 16.6 mg/dL (17.6-36.0)
[2025-06-11] MEDS: ACETAMINOPHEN 325 MG TABLET 650 MG PO (11:41)
[2025-06-11] MEDS: SODIUM CHLORIDE 0.9% 1,000 ML 50 ML IV (16:13)
--- NOTE | 2025-06-11 18:01 | P.HP_ITS ---
History of Present Illness History of Present Illness Date Patient Seen: 06/11/25 Chief complaint: Overdose Narrative: Chief complaint: Overdose of unknown substance fentanyl versus methamphetamine with coma responded to Narcan drip History of present illness: The pt is a 50yo who was brought to the ER after being found unresponsive by her boyfriend covered in vomit lying on a couch.EMS brought her to the ER, after receiving 8 mg of narcan.The kpt was able to give a brief hx to the ER doc and myself. She states she was cleaning out her daughter's purse and then passed out and doesn't remember anything after that. Amarilys denies any recent infection, no fevers/chills,no recent N/V episodes, no ill contacts. She denies recreational drug use, but + tob, rare ETOH. The pt was initally on 15 lpm oxymask but wehave weaned her down to7 lpm oxymask with Sao2 97% In the emergency room findings significant for obtunded patient with response to Narcan for departure partial orthodox of consciousness but respiration was restored patient was placed on a Narcan infusion. Imaging on chest CT: IMPRESSION: Multifocal bilateral pulmonary opacities are compatible with bilateral pneumonia. Patient was admitted to the ICU with overdose of unknown substances that the patient was removing it may have been absorbed through skin or mucous membrane surfaces. Review of systems: Patient unable to participate in a review of systems initially Several hours later patient had a negative review of systems times 14 Physical exam: Several hours after emergency room observation patient was alert and will answer questions appropriately HEENT unremarkable Heart rate and rhythm regular Lungs coarse rhonchi throughout Abdomen nontender Extremities no cyanosis clubbing edema Neuro is alert and oriented nonfocal Objective: For laboratory and imaging please see bottom of the page Assessment and plan: Overdose of illicit substances fentanyl methamphetamine potentially accidentally through skin absorption with complications of vomiting hypoxic respiratory failure and intoxication with obtundation patient has said that she found paraphernalia and panic and grabbed at all and threw it away to protect her 4-year-old granddaughter from her daughter who is a methamphetamine and fentanyl user and discarded it but did not wear gloves. It is possible that this was a cover story, however the impression of this author is that the patient is being truthful. * Patient weaned off high-flow oxygen * Zosyn for aspiration pneumonia * Wean and discontinue fentanyl drip * Discharge to home in a.m. if no further developments DVT prophylaxis: * Enoxaparin 75 minutes were involved in the management and admission of this patient [facility] Social History household members: significant other and family Smoking Status: Current every day smoker alcohol intake: current Meds Home Medications and Allergies Home Medications ?Medication ?Instructions ?Recorded ?Confirmed ?Type albuterol sulfate 90 mcg/actuation 2 puff inhalation Q 6H PRN 10/10/22 06/11/25 Rx aerosol inhaler (Proventil HFA) shortness of breath or wheezing #8.5 grams Allergies Allergy/AdvReac Type Severity Reaction Status Date / Time No Known Drug Allergies Allergy Verified 06/11/25 16:09 Exam Vital Signs (past 8 hours): - 06/11/25 10:30 06/11/25 10:31 06/11/25 10:31 Temperature Pulse Rate 84 84 Respiratory Rate 14 15 Blood Pressure 108/64 Pulse Oximetry 95 95 Oxygen Delivery Method Oxygen Flow Rate 06/11/25 11:00 06/11/25 11:01 06/11/25 11:01 Temperature Pulse Rate 85 85 Respiratory Rate 14 15 Blood Pressure 138/67 Pulse Oximetry 95 96 Oxygen Delivery Method Oxygen Flow Rate 06/11/25 11:30 06/11/25 11:32 06/11/25 11:32 Temperature Pulse Rate 85 85 Respiratory Rate 16 19 Blood Pressure 121/57 L Pulse Oximetry 93 95 Oxygen Delivery Method Oxygen Flow Rate 06/11/25 12:00 06/11/25 12:00 06/11/25 12:30 Temperature Pulse Rate 81 Respiratory Rate 22 Blood Pressure 118/64 124/69 Pulse Oximetry 97 Oxygen Delivery Method Oxygen Flow Rate 06/11/25 12:30 06/11/25 13:00 06/11/25 13:00 Temperature Pulse Rate 80 81 Respiratory Rate 18 22 Blood Pressure 115/67 Pulse Oximetry 94 95 Oxygen Delivery Method Oxygen Flow Rate 06/11/25 13:30 06/11/25 13:30 06/11/25 14:00 Temperature Pulse Rate 80 81 Respiratory Rate 18 23 Blood Pressure 119/61 Pulse Oximetry 96 95 Oxygen Delivery Method Oxygen Flow Rate 06/11/25 14:00 06/11/25 14:30 06/11/25 14:30 Temperature Pulse Rate 83 Respiratory Rate 19 Blood Pressure 117/65 112/59 L Pulse Oximetry 94 Oxygen Delivery Method Oxygen Flow Rate 06/11/25 15:00 06/11/25 15:00 06/11/25 15:59 Temperature Pulse Rate 79 86 Respiratory Rate 19 21 Blood Pressure 114/59 L 132/76 Pulse Oximetry 96 97 Oxygen Delivery Method Oxygen Flow Rate 06/11/25 16:00 06/11/25 16:00 06/11/25 17:00 Temperature 97.4 F L Pulse Rate 83 95 H Respiratory Rate 21 27 H Blood Pressure 146/57 H 119/58 L Pulse Oximetry 97 95 Oxygen Delivery Method Oximask Oxygen Flow Rate 3 Oxygen Delivery Method Oximask Oxygen Flow Rate 3 Objective Labs 06/11/25 00:40 06/11/25 00:40 Labs: Laboratory Results - last 24 hr 06/11/25 06/11/25 06/11/25 00:40 00:44 02:28 WBC 21.4 H RBC 4.59 Hgb 14.1 Hct 42.8 MCV 93.2 MCH 30.6 MCHC 32.9 RDW 13.0 Plt Count 254 Neut % (Auto) 90.9 H Lymph % (Auto) 7.3 L [place] % (Auto) 1.5 L Eos % (Auto) 0.1 L Baso % (Auto) 0.2 Neut # (Auto) 97848 H Lymph # (Auto) 1600 [place] # (Auto) 300 Eos # (Auto) 0 Baso # (Auto) 0 VBG pH 7.19 L* VBG pCO2 56.1 H VBG pO2 37 VBG HCO3 21 L VBG Total CO2 21 L VBG O2 Saturation 56 L VBG Base Excess -7.7 L FiO2 % 100 % Sodium 137 Potassium 3.8 Chloride 100 Carbon Dioxide 22 BUN 13 Creatinine 1.17 H Estimated GFR 57 L BUN/Creatinine Ratio 11.1 Glucose 197 H Lactate 4.6 H* Calcium 8.6 Total Bilirubin 0.6 AST 129 H ALT 88 H Alkaline Phosphatase 108 Total Creatine Kinase 115 Troponin I 0.016 Total Protein 8.0 Albumin 4.6 Globulin 3.4 Albumin/Globulin Ratio 1.4 Prealbumin Lipase 48 Procalcitonin 0.166 Urine Color Urine Appearance Urine pH Ur Specific [place] Urine Protein Urine Glucose (UA) Urine Ketones Urine Occult Blood Urine Nitrate Urine Bilirubin Urine Urobilinogen Ur Leukocyte Esterase Urine RBC Urine WBC Ur Squamous Epith Cells Urine Bacteria Ur Culture Indicated? Vol Urine Centrifuged U Opiates 300ng/mL cut Ur Oxycodone Screen Urine Methadone Screen Ur Barbiturates Screen U Tricyclic Antidepress Ur Phencyclidine Scrn Ur Amphetamines Screen U Methamphetamines Scrn Ur MDMA Scrn (Ecstasy) U Benzodiazepines Scrn Urine Cocaine Screen U Marijuana (THC) Screen Urine Specific [place] Ethyl Alcohol < 10 Ketones 0.07 Ur Creatinine SARS-CoV-2 (PCR) Negative Influenza A (RT-PCR) Flu a negative Influenza B (RT-PCR) Flu b negative RSV (PCR) Negative 06/11/25 06/11/25 06/11/25 02:52 02:52 03:38 WBC RBC Hgb Hct MCV MCH MCHC RDW Plt Count Neut % (Auto) Lymph % (Auto) [place] % (Auto) Eos % (Auto) Baso % (Auto) Neut # (Auto) Lymph # (Auto) [place] # (Auto) Eos # (Auto) Baso # (Auto) VBG pH VBG pCO2 VBG pO2 VBG HCO3 VBG Total CO2 VBG O2 Saturation VBG Base Excess FiO2 % Sodium Potassium Chloride Carbon Dioxide BUN Creatinine Estimated GFR BUN/Creatinine Ratio Glucose Lactate 3.5 H Calcium Total Bilirubin AST ALT Alkaline Phosphatase Total Creatine Kinase Troponin I Total Protein Albumin Globulin Albumin/Globulin Ratio Prealbumin Lipase Procalcitonin Urine Color Yellow Urine Appearance Clear Urine pH 5.5 TNP Ur Specific [place] >=1.030 H Urine Protein 1+ H Urine Glucose (UA) Negative Urine Ketones Negative Urine Occult Blood Negative Urine Nitrate Negative Urine Bilirubin Negative Urine Urobilinogen 1.0 Ur Leukocyte Esterase Negative Urine RBC None seen Urine WBC None seen Ur Squamous Epith Cells 0-1 /hpf Urine Bacteria None seen Ur Culture Indicated? Cult not indicated Vol Urine Centrifuged 10ml (spun) U Opiates 300ng/mL cut Negative Ur Oxycodone Screen Negative Urine Methadone Screen Negative Ur Barbiturates Screen Negative U Tricyclic Antidepress Negative Ur Phencyclidine Scrn Negative Ur Amphetamines Screen Positive H U Methamphetamines Scrn Positive H Ur MDMA Scrn (Ecstasy) Negative U Benzodiazepines Scrn Negative Urine Cocaine Screen Negative U Marijuana (THC) Screen Negative Urine Specific [place] TNP Ethyl Alcohol Ketones Ur Creatinine TNP SARS-CoV-2 (PCR) Influenza A (RT-PCR) Influenza B (RT-PCR) RSV (PCR) 06/11/25 08:48 WBC RBC Hgb Hct MCV MCH MCHC RDW Plt Count Neut % (Auto) Lymph % (Auto) [place] % (Auto) Eos % (Auto) Baso % (Auto) Neut # (Auto) Lymph # (Auto) [place] # (Auto) Eos # (Auto) Baso # (Auto) VBG pH VBG pCO2 VBG pO2 VBG HCO3 VBG Total CO2 VBG O2 Saturation VBG Base Excess FiO2 % Sodium Potassium Chloride Carbon Dioxide BUN Creatinine Estimated GFR BUN/Creatinine Ratio Glucose Lactate Calcium Total Bilirubin AST ALT Alkaline Phosphatase Total Creatine Kinase 138 H Troponin I Total Protein Albumin Globulin Albumin/Globulin Ratio Prealbumin 16.6 L Lipase Procalcitonin Urine Color Urine Appearance Urine pH Ur Specific [place] Urine Protein Urine Glucose (UA) Urine Ketones Urine Occult Blood Urine Nitrate Urine Bilirubin Urine Urobilinogen Ur Leukocyte Esterase Urine RBC Urine WBC Ur Squamous Epith Cells Urine Bacteria Ur Culture Indicated? Vol Urine Centrifuged U Opiates 300ng/mL cut Ur Oxycodone Screen Urine Methadone Screen Ur Barbiturates Screen U Tricyclic Antidepress Ur Phencyclidine Scrn Ur Amphetamines Screen U Methamphetamines Scrn Ur MDMA Scrn (Ecstasy) U Benzodiazepines Scrn Urine Cocaine Screen U Marijuana (THC) Screen Urine Specific [place] Ethyl Alcohol Ketones Ur Creatinine SARS-CoV-2 (PCR) Influenza A (RT-PCR) Influenza B (RT-PCR) RSV (PCR) Assessment & Plan Time-Based Coding :: [TOTAL MINUTES] spent with patient and on the chart (including review of chart, obtaining history, exam, reviewing outside data, placing orders, documenting exam and treatment plan, and counseling patient) on [DATE].
[2025-06-11] MEDS: PIPERACILLIN/TAZO 3.375 GM in SODIUM CHLORIDE 0.9% 100 ML IV (18:06)
[2025-06-12] VITALS (23 sets, daily range): BP systolic 149–174; BP diastolic 71–74; PULSE 69–84; RESP 12–26; TEMP 36.2–36.8; O2SAT 91–96
[2025-06-12] MEDS: PIPERACILLIN/TAZO 3.375 GM in SODIUM CHLORIDE 0.9% 100 ML IV (01:22)
[2025-06-12] MEDS: ACETAMINOPHEN 325 MG TABLET 650 MG PO (04:11)
[2025-06-12 04:37] LABS: Add Manual Diff / Slide Review NO; Hematocrit 35.4 % (36-46); Hemoglobin 11.6 g/dL (12.0-16.0); Lymphocytes Absolute Auto 1400 /uL (1100-4500); Mean Corpuscular HGB Conc 32.8 % (30-36); Mean Corpuscular Hemoglobin 30.1 PG (26-34); Mean Corpuscular Volume 92.0 fL (80-100); Platelet Count 200 X10^3/uL (150-400)
[2025-06-12 04:50] LABS: Alanine Aminotransferase 51 IU/L (<35); Albumin 3.6 g/dL (3.5-5.0); Albumin Globulin Ratio 1.2 (1.0-2.8); Alkaline Phosphatase 71 U/L (38-126); Blood Urea Nitrogen 12 mg/dL (7-17); Calcium 8.0 mg/dL (8.4-10.2); Carbon Dioxide 28 mmol/L (22-32); Chloride 105 mmol/L (98-107); Estimated Glomerular Filt Rate > 60 mL/min (>60); Globulin 3.0 g/dL (1.7-4.1); Glucose 91 mg/dL (70-99); HEMOLYSIS < 15 (0-50); Potassium 3.9 mmol/L (3.4-5.1); Sodium 137 mmol/L (137-145); Total Protein 6.6 g/dL (6.3-8.2)
[2025-06-12] MEDS: PIPERACILLIN/TAZO 4.5 GM in SODIUM CHLORIDE 0.9% 100 ML IV (09:01)
[2025-06-12] MEDS: ENOXAPARIN 40 MG/0.4 ML SYRINGE SUBCUT (09:01)
[2025-06-12] MEDS: PANTOPRAZOLE 40 MG VIAL IV (09:01)
--- NOTE | 2025-06-12 10:30 | PM.DS.1 ---
History of Present Illness History of Present Illness Chief complaint: Overdose Narrative: From H&P: Chief complaint: Overdose of unknown substance fentanyl versus methamphetamine with coma responded to Narcan drip History of present illness: The pt is a 50yo who was brought to the ER after being found unresponsive by her boyfriend covered in vomit lying on a couch.EMS brought her to the ER, after receiving 8 mg of narcan.The kpt was able to give a brief hx to the ER doc and myself. She states she was cleaning out her daughter's purse and then passed out and doesn't remember anything after that. Amarilys denies any recent infection, no fevers/chills,no recent N/V episodes, no ill contacts. She denies recreational drug use, but + tob, rare ETOH. The pt was initally on 15 lpm oxymask but wehave weaned her down to7 lpm oxymask with Sao2 97% In the emergency room findings significant for obtunded patient with response to Narcan for departure partial lutheran of consciousness but respiration was restored patient was placed on a Narcan infusion. Discharge Providers Provider Date of admission: 06/11/25 03:55 Discharge Date: 06/12/25 Primary care physician: Doctor Sabra MD Discharge provider: Burke Ram MD Summary Hospital Course Discharge Diagnosis: 1. Fentanyl overdose, present on admission and resolved. 2. Possible aspiration with pneumonitis, no symptoms of infection at the time of discharge. 3. Acute hypoxic respiratory failure, resolved. Hospital Course: She was admitted with fentanyl overdose. She was treated with Narcan, high-flow oxygen, and Narcan infusion. This is weaned off and her hypoxia was resolved. She had no further symptoms or signs of respiratory distress or infection such as cough or fever. At the time of discharge she felt that she was at her baseline and requested discharge home. The importance of avoiding fentanyl was discussed with her prior to discharge. Status at Discharge Cognitive/behavioral status at discharge: oriented Functional status at discharge: independent ambulation Overall status at discharge: patient is back to baseline Time Spent with Patient Time spent: Greater than 30 minutes Exam Vital Signs (past 8 hours): - 06/12/25 03:00 06/12/25 03:00 06/12/25 03:00 Temperature 97.9 F Pulse Rate 80 Respiratory Rate 13 Blood Pressure 164/74 H Pulse Oximetry 94 06/12/25 03:30 06/12/25 04:00 06/12/25 04:00 Temperature 98.3 F Pulse Rate 82 84 Respiratory Rate 13 16 Blood Pressure Pulse Oximetry 95 95 06/12/25 04:30 06/12/25 05:00 06/12/25 05:00 Temperature 98.0 F Pulse Rate 80 80 Respiratory Rate 15 15 Blood Pressure Pulse Oximetry 92 92 06/12/25 05:30 06/12/25 06:00 06/12/25 06:30 Temperature Pulse Rate 78 79 78 Respiratory Rate 18 14 14 Blood Pressure Pulse Oximetry 92 92 94 06/12/25 07:00 06/12/25 07:30 06/12/25 08:00 Temperature 97.2 F L Pulse Rate 75 74 Respiratory Rate 13 13 Blood Pressure Pulse Oximetry 95 92 06/12/25 08:00 06/12/25 08:30 06/12/25 09:00 Temperature Pulse Rate 79 72 72 Respiratory Rate 15 16 16 Blood Pressure Pulse Oximetry 92 92 93 06/12/25 09:04 06/12/25 09:04 06/12/25 09:30 Temperature Pulse Rate 74 71 Respiratory Rate 16 18 Blood Pressure 149/72 H Pulse Oximetry 92 93 06/12/25 10:00 Temperature Pulse Rate 77 Respiratory Rate 26 H Blood Pressure Pulse Oximetry 92 Oxygen Delivery Method Nasal Cannula Oxygen Flow Rate 3 Narrative Exam Narrative: NAD, alert and oriented. Fluent speech. Lungs are clear, normal rate and effort. Heart is regular, no murmur gallop or rub. Abdomen is soft, non distended. Extremities are free of edema. Objective Imaging CT scan - chest: Radiologist's impression: Multifocal bilateral pulmonary opacities are compatible with bilateral pneumonia. Patient was admitted to the ICU with overdose of unknown substances that the patient was removing it may have been absorbed through skin or mucous membrane surfaces. Labs 06/12/25 03:57 06/12/25 03:57 Labs: Laboratory Results - last 24 hr 06/12/25 03:57 WBC 12.3 H RBC 3.85 L Hgb 11.6 L Hct 35.4 L MCV 92.0 MCH 30.1 MCHC 32.8 RDW 13.1 Plt Count 200 Neut % (Auto) 82.4 H Lymph % (Auto) 11.2 L [place] % (Auto) 5.4 Eos % (Auto) 0.7 L Baso % (Auto) 0.3 Neut # (Auto) 03007 H Lymph # (Auto) 1400 [place] # (Auto) 700 Eos # (Auto) 100 Baso # (Auto) 0 Sodium 137 Potassium 3.9 Chloride 105 Carbon Dioxide 28 BUN 12 Creatinine 0.78 Estimated GFR > 60 BUN/Creatinine Ratio 15.4 Glucose 91 D Calcium 8.0 L Total Bilirubin 0.6 AST 35 ALT 51 H Alkaline Phosphatase 71 Total Protein 6.6 Albumin 3.6 Globulin 3.0 Albumin/Globulin Ratio 1.2 PFSH Social History household members: significant other and family Smoking Status: Current every day smoker alcohol intake: current Discharge Assessment & Plan Assessment and Plan Assessment: 1. Fentanyl overdose, present on admission and resolved. 2. Possible aspiration with pneumonitis, no symptoms of infection at the time of discharge. 3. Acute hypoxic respiratory failure, resolved. Plan of Treatment: Discharge home without antibiotics given lack of signs of infection. She will follow up with her PCP within the next week. We will monitor for evidence of cough or shortness a breath. The importance of avoiding fentanyl and the high risk of with fentanyl was also reviewed with her prior to discharge. Instructions for Narcan were given to her as well. Discharge Plan Discharge Plan Patient Disposition: Home Provider Discharge Comment: Stable for discharge home. Discharge orders & Medications Prescriptions: Continued albuterol sulfate [Proventil HFA] 90 mcg/actuation HFA aerosol inhaler 2 puff inhalation Q6H PRN (Reason: shortness of breath or wheezing) Qty: 8.5 0RF Follow up/Referrals: Doctor Montaño MD [Primary Care Provider, Medical] Diet/Activity/Treatments Diet: Regular Visit Report/Discharge Packet Instructions: Naloxone Nasal [place] Stand Alone Forms: Patient Portal/API Discharge Data Primary Care Provider: Doctor Sabra
--- NOTE | 2025-06-12 12:14 | PC.NURSE ---
Discharge Note Patient alert and oriented x4. Weaned to RA this AM with SpO2 90-91% with activity and 92-93% at rest. Walked in the gardner, steady on feet. Patient discharged to home with family member at 1140. Escorted to hospital exit via wheelchair by staff member. Written and verbal d/c instructions given on narcan spray and standing order for narcan from [facility] given to pt and pt encouraged to fill. 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 No valuables in safe and no meds in pharamcy.
--- NOTE | 2025-06-12 13:41 | CM.DANOTE ---
DCP Assessment note pt is a 50yo F admitted with accidental methamphetamine/fentanyl overdose. PCP none, pt reports she is working on getting one, reports she does not want resources for establishing PCP SOC. Payer Jake and self pay VISCOSITY TESTER reviewed EMR per chart review, pt adamant she did not take the substances herself. reports she got them from her dtrs bag and threw them out without gloves. boyfriend found her unresponsive. was in ICU for narcan drip. per provider in morning rounds, cleared to dc today. Per RN, no active signs of withdrawal at this time to indicate pt utilizes illicit substances recreationally. VISCOSITY TESTER met briefly with pt right as she was discharging. pt reports she lives in [place] with boyfriend and takes are of 4 yr old granddaughter. pt reports her dtr leaves granddaughter with her under her care but does not have shelter rights. reports that her dtr was the one that had the substances and pt removed them with her hands due to concern that granddaughter was getting into the bag. VISCOSITY TESTER explained that due to the nature of the event/child having access to open substances in the home that it is required as a mandated reported to make a CPS report. pt reported understanding. hopeful to get custody of granddaughter and get her dtr Jocy out of my life for good. VISCOSITY TESTER completed CPS report with daniel Gross (#[id number]) with known information. P: pt to dc home today no further CM needs at this time. Pt aware of pending CPS investigation, will continue to follow with them moving forward. KAMI Sheilds Discharge Planning/Care Management CM Discharge Assessment Start: 06/11/25 07:06 Freq: Status: Discharge Protocol: Document 06/12/25 13:40 SL (Rec: 06/12/25 13:41 Desktop) Discharge Planning Assessment Assigned Discharge KAMI Par[employer] DPOA/Assigned SonKj Designee Name Contact Information [phone] Advance Directives? No History Provided By Patient Prior Living House Arrangements Household Members significant other,family Type of Drives own vehicle transporation used prior to admit Independent with ADL Yes 's Is patient alert and Yes oriented? Discharge Plan Home Review Status In Process Please Provide Date 06/12/25 Initial DC Assessment Was Performed Next Review Type Continued Stay Review
== END 2025-06-12 11:40 | disposition home or self-care (01) | DRG 812 ==
LOC: ED 03:55 → AC 03:56 → ICU 13:01
PROVIDERS: Admitting Provider Internal Medicine; Emergency Provider Family Medicine; Family Provider Family Medicine; Referring Provider Family Medicine; Visit Provider Internal Medicine
DX: T40.411A Poisoning by fentanyl or fentanyl analogs, accidental (unintentional), initial encounter (principal); J96.01 Acute respiratory failure with hypoxia; G93.41 Metabolic encephalopathy; J69.0 Pneumonitis due to inhalation of food and vomit; F15.90 Other stimulant use, unspecified, uncomplicated; J18.9 Pneumonia, unspecified organism; F17.200 Nicotine dependence, unspecified, uncomplicated
CPT/HCPCS: 36415; 70450; 71045; 71250; 80053; 80305; 80320; 81001; 82009; 82550; 82805; 83605; 83690; 84134; 84145; 84484; 85025; 87040; 87637; 93005; 94640; 96365; 96366; 96368; 96375; 99285; J1650; J2310; J2405; J2470; J2543

== ENCOUNTER → 2025-07-08 08:53 | Outpatient (CLI) | payer OTHER, SELFPAY ==
[2025-06-11 16:00] VITALS: BMI 51.3
[2025-07-08 09:15] LABS: Add Manual Diff / Slide Review NO; Hematocrit 42.0 % (36-46); Hemoglobin 14.0 g/dL (12.0-16.0); Lymphocytes Absolute Auto 1600 /uL (1100-4500); Mean Corpuscular HGB Conc 33.4 % (30-36); Mean Corpuscular Hemoglobin 30.4 PG (26-34); Mean Corpuscular Volume 90.9 fL (80-100); Platelet Count 216 X10^3/uL (150-400)
[2025-07-08 09:31] LABS: Hemoglobin A1C% w Est Avg Glu 5.3 % (4.0-6.0)
[2025-07-08 10:05] LABS: HEMOLYSIS < 15 (0-50)
[2025-07-08 10:13] LABS: Alanine Aminotransferase 27 IU/L (<35); Albumin 4.3 g/dL (3.5-5.0); Albumin Globulin Ratio 1.3 (1.0-2.8); Alkaline Phosphatase 96 U/L (38-126); Blood Urea Nitrogen 18 mg/dL (7-17); Calcium 8.8 mg/dL (8.4-10.2); Carbon Dioxide 27 mmol/L (22-32); Chloride 103 mmol/L (98-107); Cholesterol 178 mg/dL (140-199); Estimated Glomerular Filt Rate > 60 mL/min (>60); Globulin 3.2 g/dL (1.7-4.1); Glucose 92 mg/dL (70-99); HDL Cholesterol 52 mg/dL (40-60); HEMOLYSIS < 15 (0-50); Potassium 4.5 mmol/L (3.4-5.1); Sodium 136 mmol/L (137-145); Total Protein 7.5 g/dL (6.3-8.2); Triglycerides 149 mg/dL (35-150)
[2025-07-08 10:21] LABS: Total Iron Binding Capacity 340 ug/dL (265-497); Transferrin 285 mg/dL (206-381)
[2025-07-08 10:42] LABS: Thyroid Stimulating Hormone 1.26 uIU/mL (0.47-4.68)
[2025-07-08 10:58] LABS: Ferritin 50 ng/mL (6-137)
[2025-07-08 11:18] LABS: Folate 5.6 ng/mL (2.76-20.0); Vitamin B12 580 pg/mL (239-931)
[2025-07-08 19:44] LABS: Iron 130 ug/dL (37-170); Percent Iron Saturation 38 % (15-50)
== END ==
PROVIDERS: PCP Student in an Organized Health Care Education/Training Program; Referring Provider Student in an Organized Health Care Education/Training Program; Visit Provider Student in an Organized Health Care Education/Training Program
DX: R63.5 Abnormal weight gain (principal); Z83.3 Family history of diabetes mellitus; F32.0 Major depressive disorder, single episode, mild; Z13.220 Encounter for screening for lipoid disorders
CPT/HCPCS: 36415; 80053; 80061; 82607; 82728; 82746; 83036; 83540; 83550; 84443; 85025